=== PATIENT | female | born 1960 | race Caucasian/White ===

== ENCOUNTER 2022-03-29 07:47 | Outpatient (CLI) | payer BC ==
[2022-03-29] MEDS ORDERED: Iopamidol 300 61% 100 ML VIAL FS ONE (10:07)
== END 2022-03-29 07:48 | disposition home or self-care (01) ==
LOC: CSHCT 07:47
PROVIDERS: ATTEND Surgery
DX: R10.32 Left lower quadrant pain (principal)
CPT/HCPCS: 72193; 82565

== ENCOUNTER 2024-10-12 10:24 | Outpatient (CLI) | payer BC | END 2024-10-12 10:25 | disposition home or self-care (01) | LOC: CSHMRI 10:24 | PROVIDERS: ATTEND Orthopaedic Surgery | DX: M47.22 Other spondylosis with radiculopathy, cervical region (principal); M48.02 Spinal stenosis, cervical region | CPT/HCPCS: 72141 ==